=== PATIENT | female | born 1945 | race American Indian/Alaskan Native ===

== ENCOUNTER 2019-04-09 08:30 | Outpatient (CLI) | payer MEDICARE ==
--- NOTE | 2019-04-09 12:18 | Cat Scan Report ---
CT ABDOMEN AND PELVIS WITH CONTRAST HISTORY: I89.0 LYMPHEDEMA COMPARISON: None. TECHNIQUE: Axial CT images were obtained through the abdomen and pelvis after 100 cc of Omnipaque 300 intravenously. Sagittal and coronal reformatted images. All CT scans at this location are performed using CT dose reduction for ALARA by means of automated exposure control. FINDINGS: CT ABDOMEN: Lung Bases: Clear. Liver: No significant abnormality. Biliary: Cholecystectomy. No biliary dilatation. Spleen: No significant abnormality. Unenlarged. Pancreas: No significant abnormality. Adrenals: No significant abnormality. Kidneys: No significant abnormality. Lymphatics: No lymphadenopathy. Vasculature: No significant abnormality. No convincing evidence of May Thurner and room. Bowel/Peritoneum: No significant abnormality. No free air. No free fluid. CT PELVIS: : Hysterectomy changes are suspected. No adnexal abnormality. The bladder and distal ureters are un remarkable. Osseous Structures: Mild thoracolumbar spondylosis. No fracture or suspicious bony lesion. Grade 1 an terior listhesis of L4 with respect to L5 appears to be secondary to degenerative facet arthropathy. Additional Findings: None IMPRESSION: No significant abnormality is identified in the abdomen and pelvis. Surgical changes as described. Degenerative findings in the lumbar spine. Signer Name: Colton Salvador Jr, MD Signed: 04/09/2019 12:13 PM Workstation Name: [id number]
== END 2019-04-09 08:31 | disposition home or self-care (01) ==
LOC: CT 08:30
PROVIDERS: ATTEND Internal Medicine Hematology & Oncology
DX: I89.0 Lymphedema, not elsewhere classified (principal); I10 Essential (primary) hypertension; K21.9 Gastro-esophageal reflux disease without esophagitis; Z90.49 Acquired absence of other specified parts of digestive tract; Z90.710 Acquired absence of both cervix and uterus; M19.90 Unspecified osteoarthritis, unspecified site
CPT/HCPCS: 36415; 74177; 82565; 84520